=== PATIENT | male | born 1990 | race American Indian/Alaskan Native ===

== ENCOUNTER 2017-03-14 04:48 | Emergency (ER) | payer OTHER ==
[2017-03-14 05:01] VITALS: BP 138/69
[2017-03-14] MEDS ORDERED: AUGMENTIN 875 MG PO ONE (07:48)
--- NOTE | 2017-03-14 07:52 | Emergency Department Report ---
HPI - General Chief Complaint: Sore Throat Time Seen by Provider: 03/14/17 07:28 - HPI HPI: There is a 26-year-old male presents to the ED complaining of feeling sinus pressure, nasal congestion and throat pain 4 days. Patient states that his pain experiencing runny nose, coughing up yellowish mucus. Patient states his been taking Mucinex with no relief. Patient states he noticed today that his eyes are red and they've been watering. He denies any foreign objects in the eyes, eye pain, he also denies fevers/nausea/vomiting/chest pain/shortness of breath. ED Past Medical Hx - Past Medical History Previous Medical History?: No - Surgical History Past Surgical History?: No - Social History Smoking Status: Never Smoker Substance Use Type: None - Medications Home Medications: Home Medications Medication Instructions Recorded Confirmed Last Taken Type Amoxicillin/K Clav Tab [Augmentin 1 each PO BID #20 tablet 03/14/17 Unknown Rx 875MG TAB] Ibuprofen [Motrin] 600 mg PO Q8H PRN #30 tablet 03/14/17 Unknown Rx Ofloxacin 0.3% [Ocuflox] 1 - 2 drops OP BID #1 bottle 03/14/17 Unknown Rx Pseudoephedrine ER [Sudafed 12 Hr] 120 mg PO BID #12 tablet.er 03/14/17 Unknown Rx ED Review of Systems ROS: Stated complaint: SINUS INFECTION Other details as noted in HPI Constitutional: denies: chills, fever Eyes: denies: eye pain, eye discharge, vision change ENT: throat pain, congestion. denies: ear pain, dental pain Respiratory: cough. denies: shortness of breath, wheezing Cardiovascular: denies: chest pain, palpitations Endocrine: no symptoms reported Gastrointestinal: denies: abdominal pain, nausea, vomiting, diarrhea Genitourinary: denies: urgency, dysuria Musculoskeletal: denies: back pain, joint swelling, arthralgia Skin: denies: rash, lesions Neurological: denies: headache, weakness, paresthesias Psychiatric: denies: anxiety, depression Hematological/Lymphatic: denies: easy bleeding, easy bruising Physical Exam - Physical Exam Vital Signs: Vital Signs 03/14/17 04:53 Temperature 98.7 F Pulse Rate 61 Respiratory 18 Rate Blood Pressure 138/69 O2 Sat by Pulse 99 Oximetry Physical Exam: GENERAL: Alert and oriented x3, no apparent distress, Normal Gait, atraumatic. HEAD: Head is normocephalic and a-traumatic. EYES: Sclerae is mildly erythematous, watery discharge seen, no foreign objects seen bilaterally, conjunctivae pink and moist, Extra ocular muscles are intact. Pupils are equal, round, and reactive to light and accommodation. EARS: symetrical, atraumatic, non tender, ear canal clear and moderate cerumen, tympanic membrance non inflamed. Yellowish fluid behind tympanic membranes bilaterally. gross auditory nml bilaterally. NOSE: Nose symetrical, Nontender,Nares appeared normal. Frontal and maxillary sinus tenderness MOUTH:Mouth is well hydrated and without lesions. Tonsils nonerythematous or swollen, Uvula midline, Tongue not elevated. Mucous membranes are moist. Posterior pharynx clear, no exudate or lesions. Patent airways. NECK: Supple. Non edematous, No lymphadenopathy. LUNGS: Symetrical with respiration, CTAB. HEART: S1, S2 present, regular rate and rhythm. Non tender to palpation SKIN: Warm and dry, No lesions, No ulceration or induration present. ED Course Vital Signs 03/14/17 04:53 Temperature 98.7 F Pulse Rate 61 Respiratory 18 Rate Blood Pressure 138/69 O2 Sat by Pulse 99 Oximetry ED Medical Decision Making - Medical Decision Making 26-year-old male presents with sinusitis with mild conjunctivitis ED course: Patient received Augmentin 875 in the ED Rapid strep tests collected. Rapid strep negative I discussed this findings with the patient. I discussed the patient will be sent home on some antibiotics for a sinus infection and some eyedrops for the eyes. Patient is in no acute or respiratory distress. His vital signs are normalized. I discussed with the patient to follow up with primary care physician in 3-5 days. I discussed with the patient if any worsening symptoms or new symptoms arise to return to the ED Critical care attestation.: If time is entered above; I have spent that time in minutes in the direct care of this critically ill patient, excluding procedure time. ED Disposition Clinical Impression: Sinusitis, acute Qualifiers: Sinusitis location: frontal Recurrence: non-recurrent Qualified Code(s): J01.10 - Acute frontal sinusitis, unspecified Conjunctivitis Qualifiers: Conjunctivitis type: acute Acute conjunctivitis type: unspecified Laterality: bilateral Qualified Code(s): H10.33 - Unspecified acute conjunctivitis, bilateral Disposition: DC-01 TO HOME OR SELFCARE Is pt being admited?: No Does the pt Need Aspirin: No Condition: Stable Instructions: Acute Bacterial Rhinosinusitis (ED), Sinusitis (ED), Conjunctivitis (ED) Additional Instructions: Make sure to follow up with the primary care physician as discussed. Take all your medications as you've been prescribed. If you have any worsening symptoms or develop new symptoms please return to ED immediately. Prescriptions: Amoxicillin/K Clav Tab [Augmentin 875MG TAB] 1 each PO BID #20 tablet Ibuprofen [Motrin] 600 mg PO Q8H PRN #30 tablet PRN Reason: Pain Ofloxacin 0.3% [Ocuflox] 1 - 2 drops OP BID #1 bottle Pseudoephedrine ER [Sudafed 12 Hr] 120 mg PO BID #12 tablet.er Referrals: PRIMARY CARE, [Primary Care Provider] - 3-5 Days [facility] [Outside] - 3-5 Days [facility] [Outside] - 3-5 Days Forms: Work/School Release Form(ED) Time of Disposition: 07:58
== END 2017-03-14 08:19 | disposition home or self-care (01) ==
LOC: ED 04:48
DX: J01.10 Acute frontal sinusitis, unspecified (principal); H10.33 Unspecified acute conjunctivitis, bilateral
CPT/HCPCS: 87116; 87430; 99282